=== PATIENT | female | born 1940 | race Caucasian/White ===

== ENCOUNTER 2021-10-01 18:44 | Inpatient (IN) | payer MEDICARE, OTHER ==
[2021-10-01] MEDS ORDERED: Ondansetron PF 4 MG/2 ML Vial ONE ×2 (19:24→20:34)
[2021-10-01 19:53] LABS: #Eosinphils 0.1 10x3/uL (0.0-0.5); #Monocytes 0.6 10x3/uL (0.0-1.1); #Neutrophils 7.3 10x3/uL (1.5-8.4); %Basophils 0.3 % (0.0-2.0); %Eosinophils 0.7 % (0.0-6.0); %Lymphocytes 16.2 % (18.0-47.0); %Neutrophils 76.5 % (40.0-75.0); Hemoglobin 12.4 g/dL (12.0-15.5); Mean Corpuscular Hemoglobin 31.2 pg (27.0-33.0); Mean Corpuscular Volume 94.7 fl (81.6-98.3); Mean Platelet Volume 9.1 fl (7.4-10.4); Platelet Count 268 10x3/uL (150-450); RBC Distribution Width 11.7 % (11.5-14.5); Red Blood Cell (RBC) Count 3.97 10x6/uL (3.90-5.03); White Blood Cell (WBC) Count 9.5 10x3/uL (3.5-10.5)
[2021-10-01 20:01] LABS: ALT (SGPT) 17 U/L (8-55); AST (SGOT) 26 U/L (5-34); Albumin 4.2 g/dL (3.4-4.8); Alkaline Phosphatase 72 U/L (40-110); Anion Gap 18 mmol/L (10-20); BUN (Urea Nitrogen) 20 mg/dL (9.8-20.1); Bilirubin, Total 0.5 mg/dL (0.2-1.2); Calc. Creatinine Clearance 0 mL/min (70-130); Calcium 9.3 mg/dL (7.8-10.44); Carbon Dioxide 20 mmol/L (23-31); Chloride 97 mmol/L (98-107); Globulin 3.3 g/dL (2.4-3.5); Glucose 135 mg/dL (83-110); Lipase 38 U/L (8-78); Protein, Total 7.5 g/dL (5.8-8.1); Sodium 131 mmol/L (136-145)
[2021-10-01] MEDS ORDERED: HYDROmorphone 0.5 MG/0.5 ML SYRINGE ONE ×2 (20:36→21:46)
[2021-10-01 21:50] LABS: Bilirubin Neg (Negative); Blood, Urine Negative (Negative); Clarity Slightly Cloudy (Clear); Glucose, Urine (Dipstick) Normal (Negative); Ketone, Urine 150 mg/dL (Negative); Leukocyte Negative (Negative); Nitrite Negative (Negative); Protein, Urine (Dipstick) 15 mg/dl (Neg-Trace); Specific Gravity, Urine 1.015 (1.002-1.036); Urobilinogen Normal mg/dL (Less than 2)
[2021-10-01 23:36] LABS: SARS-CoV-2 NAA Rapid Test Not Detected (NotDetected)
[2021-10-01] MEDS ORDERED: Ondansetron PF 4 MG/2 ML Vial IVP PRN (23:43)
[2021-10-02] MEDS: Sodium Chloride 0.9% 1,000 ML IV SCH ×3 (00:34→17:37)
[2021-10-02] MEDS ORDERED: HYDROmorphone 0.5 MG/0.5 ML SYRINGE ONE (02:36)
[2021-10-02] MEDS ORDERED: Ondansetron PF 4 MG/2 ML Vial ONE ×2 (02:37→07:41)
[2021-10-02] MEDS ORDERED: cefOXitin Sodium/Dextrose 2 GM/50 ML BAG ONE (03:09)
[2021-10-02] MEDS ORDERED: EPINEPHrine 1 MG/ML AMP ONE (03:35)
[2021-10-02] MEDS ORDERED: Bupivacaine 0.25% HCL 30 ML VIAL ONE (03:35)
[2021-10-02 04:25] LABS: Magnesium 1.9 mg/dL (1.6-2.6)
[2021-10-02] MEDS ORDERED: Rocuronium Bromide 10 MG/ML (10ML VIAL) ONE ×2 (04:59→06:19)
[2021-10-02] MEDS ORDERED: Lidocaine 1% PF 5 ML VIAL ONE (04:59)
[2021-10-02] MEDS ORDERED: Fentanyl 100 MCG/2 ML VIAL ONE ×2 (05:01→07:37)
[2021-10-02] MEDS ORDERED: Succinylcholine 200 MG/10 ml SYRINGE FS ONE (06:19)
[2021-10-02] MEDS ORDERED: Dexamethasone 4 mg/ml Vial ONE (07:41)
[2021-10-02] MEDS ORDERED: Glycopyrrolate 0.2 MG/ML 5 ML SYRINGE ONE (07:41)
[2021-10-02] MEDS ORDERED: Zolpidem Tartrate 5 MG TAB PO PRN (08:45)
[2021-10-02] MEDS ORDERED: diphenhydrAMINE 50 MG/ML VIAL IM/IV PRN (08:45)
[2021-10-02] MEDS ORDERED: Promethazine HCl 25 MG/ML VIAL IM PRN (08:45)
[2021-10-02] MEDS ORDERED: fentaNYL Citrate/PF PCA SYRING 50 ML IV SCH (08:45)
[2021-10-02] MEDS ORDERED: diphenhydrAMINE 25 MG CAP PO PRN (08:45)
[2021-10-02] MEDS ORDERED: Naloxone HCl 0.4 mg/ml Vial IV PRN (08:45)
[2021-10-02] MEDS ORDERED: FLU VACC QS2021-22(65YR UP)/PF 240 MCG/0.7 ML SYRINGE IM ONE (11:15)
[2021-10-02 11:25] LABS: #Monocytes 1.3 10x3/uL (0.0-1.1); #Neutrophils 7.8 10x3/uL (1.5-8.4); %Basophils 0.1 % (0.0-2.0); %Lymphocytes 11.6 % (18.0-47.0); %Monocytes 12.4 % (0.0-10.0); %Neutrophils 75.3 % (40.0-75.0); Mean Corpuscular HGB CONC 33.4 g/dL (32.0-36.0); Mean Corpuscular Volume 95.7 fl (81.6-98.3); Mean Platelet Volume 8.8 fl (7.4-10.4); Platelet Count 282 10x3/uL (150-450); Red Blood Cell (RBC) Count 3.75 10x6/uL (3.90-5.03); White Blood Cell (WBC) Count 10.4 10x3/uL (3.5-10.5)
[2021-10-02 11:39] LABS: Lactic Acid 1.8 mmol/L (0.5-2.2)
[2021-10-02] MEDS: cefOXitin Sodium 1 GM in Sodium Chloride 0.9% 100 ML IVPB SCH ×3 (11:40→21:10)
[2021-10-02] MEDS: Pantoprazole 40 MG VIAL IVP SCH ×2 (11:41→21:10)
[2021-10-02 11:43] LABS: ALT (SGPT) 13 U/L (8-55); AST (SGOT) 23 U/L (5-34); Albumin 3.3 g/dL (3.4-4.8); Alkaline Phosphatase 55 U/L (40-110); Anion Gap 14 mmol/L (10-20); BUN (Urea Nitrogen) 11 mg/dL (9.8-20.1); Bilirubin, Total 0.5 mg/dL (0.2-1.2); Calc. Creatinine Clearance 64 mL/min (70-130); Calcium 8.3 mg/dL (7.8-10.44); Carbon Dioxide 21 mmol/L (23-31); Chloride 103 mmol/L (98-107); Glucose 134 mg/dL (83-110); Potassium 3.8 mmol/L (3.5-5.1); Protein, Total 6.3 g/dL (5.8-8.1); Sodium 134 mmol/L (136-145)
[2021-10-02] MEDS ORDERED: Non-Formulary Medication 1 EACH (Brimonidine Tartrate/Timolol [Combigan 0.2%-0.5% Eye Drop OP SCH (21:00)
[2021-10-02] MEDS: Timolol 0.5% Ophth Soln 5 ml Bottle EA EYE SCH (22:30)
[2021-10-02] MEDS: Brimonidine Tartrate 0.2% Ophth Soln 5 ml Bottle EA EYE SCH (22:30)
[2021-10-03] MEDS: Sodium Chloride 0.9% 1,000 ML IV SCH ×4 (00:40→22:00)
[2021-10-03 04:21] LABS: Hemoglobin 11.7 g/dL (12.0-15.5); Mean Corpuscular HGB CONC 33.8 g/dL (32.0-36.0); Mean Corpuscular Volume 94.5 fl (81.6-98.3); Mean Platelet Volume 8.9 fl (7.4-10.4); Platelet Count 288 10x3/uL (150-450); RBC Distribution Width 12.2 % (11.5-14.5); Red Blood Cell (RBC) Count 3.66 10x6/uL (3.90-5.03); White Blood Cell (WBC) Count 10.6 10x3/uL (3.5-10.5)
[2021-10-03 04:38] LABS: Anion Gap 10 mmol/L (10-20); BUN (Urea Nitrogen) 11 mg/dL (9.8-20.1); Calc. Creatinine Clearance 64 mL/min (70-130); Calcium 8.2 mg/dL (7.8-10.44); Carbon Dioxide 23 mmol/L (23-31); Chloride 105 mmol/L (98-107); Glucose 112 mg/dL (83-110); Potassium 3.9 mmol/L (3.5-5.1); Sodium 134 mmol/L (136-145)
[2021-10-03 04:39] LABS: MDiff Complete? YES; Manual Diff?? YES
[2021-10-03 05:45] LABS: Band 3 % (5-11); Lymphocytes 5 % (21-51); Monocytes 14 % (0-10); Neutrophil 70 % (42-75); Reactive Lymphocytes 8 % (0-10)
[2021-10-03 05:46] LABS: Platelet Morphology Comment Appears Adequate
[2021-10-03] MEDS: cefOXitin Sodium 1 GM in Sodium Chloride 0.9% 100 ML IVPB SCH ×2 (06:45→09:33)
[2021-10-03] MEDS: Pantoprazole 40 MG VIAL IVP SCH ×2 (09:33→20:39)
[2021-10-03] MEDS: Ondansetron PF 4 MG/2 ML Vial IVP PRN ×2 (09:33→18:00)
[2021-10-03] MEDS: Levothyroxine Sodium 50 MCG TAB PO SCH (09:36)
[2021-10-03] MEDS: Fluticasone Propionate Nasal Spray 16 gm Bottle NASAL SCH (09:37)
[2021-10-03] MEDS: Timolol 0.5% Ophth Soln 5 ml Bottle EA EYE SCH ×2 (09:38→20:39)
[2021-10-03] MEDS: Brimonidine Tartrate 0.2% Ophth Soln 5 ml Bottle EA EYE SCH ×2 (09:46→20:40)
[2021-10-03] MEDS: Apixaban 2.5 MG TAB PO SCH (20:37)
[2021-10-03] MEDS: Promethazine HCl 12.5 MG in Sodium Chloride 0.9% 50 ML IVPB PRN (20:39)
[2021-10-03] MEDS ORDERED: Montelukast Sodium 10 mg Tablet PO SCH (21:30)
[2021-10-04 02:48] LABS: Anion Gap 12 mmol/L (10-20); BUN (Urea Nitrogen) 8 mg/dL (9.8-20.1); Calc. Creatinine Clearance 72 mL/min (70-130); Calcium 7.9 mg/dL (7.8-10.44); Carbon Dioxide 21 mmol/L (23-31); Chloride 103 mmol/L (98-107); Glucose 94 mg/dL (83-110); Magnesium 1.8 mg/dL (1.6-2.6); Potassium 3.3 mmol/L (3.5-5.1); Sodium 133 mmol/L (136-145)
[2021-10-04 02:52] LABS: #Eosinphils 0.1 10x3/uL (0.0-0.5); #Monocytes 1.2 10x3/uL (0.0-1.1); #Neutrophils 6.4 10x3/uL (1.5-8.4); %Basophils 0.2 % (0.0-2.0); %Eosinophils 0.9 % (0.0-6.0); %Lymphocytes 19.6 % (18.0-47.0); %Monocytes 12.3 % (0.0-10.0); %Neutrophils 66.6 % (40.0-75.0); Hemoglobin 11.4 g/dL (12.0-15.5); Mean Corpuscular HGB CONC 33.5 g/dL (32.0-36.0); Mean Corpuscular Hemoglobin 31.8 pg (27.0-33.0); Mean Platelet Volume 8.9 fl (7.4-10.4); Platelet Count 252 10x3/uL (150-450); RBC Distribution Width 12.2 % (11.5-14.5); Red Blood Cell (RBC) Count 3.58 10x6/uL (3.90-5.03); White Blood Cell (WBC) Count 9.7 10x3/uL (3.5-10.5)
[2021-10-04] MEDS: Ondansetron PF 4 MG/2 ML Vial IVP PRN ×2 (02:57→18:58)
[2021-10-04] MEDS ORDERED: Diltiazem 125 MG in Sodium Chloride 0.9% 100 ML IVPB SCH ×2 (04:00→09:00)
[2021-10-04] MEDS: Promethazine HCl 12.5 MG in Sodium Chloride 0.9% 50 ML IVPB PRN (04:17)
[2021-10-04] MEDS: Artificial Tear Sol 15 ML BOT EA EYE SCH ×3 (04:26→22:08)
[2021-10-04] MEDS ORDERED: ESTRADIOL 0.5 MG PO SCH (09:00)
[2021-10-04] MEDS ORDERED: Montelukast Sodium 10 mg Tablet PO SCH (09:00)
[2021-10-04] MEDS: Levothyroxine Sodium 50 MCG TAB PO SCH (09:21)
[2021-10-04] MEDS: Apixaban 2.5 MG TAB PO SCH ×2 (09:21→22:07)
[2021-10-04] MEDS: D5 1/2 NS w/20 mEq KCL 1,000 ML IV SCH (09:21)
[2021-10-04] MEDS: Potassium Chloride 20 MEQ in Premix Bag 1 BAG IVPB SCH ×2 (09:21→12:30)
[2021-10-04] MEDS: Pantoprazole 40 MG VIAL IVP SCH ×2 (09:22→22:20)
[2021-10-04] MEDS: Timolol 0.5% Ophth Soln 5 ml Bottle EA EYE SCH ×2 (09:22→22:10)
[2021-10-04] MEDS: Brimonidine Tartrate 0.2% Ophth Soln 5 ml Bottle EA EYE SCH ×2 (09:23→22:08)
[2021-10-04] MEDS: Fluticasone Propionate Nasal Spray 16 gm Bottle NASAL SCH (09:23)
[2021-10-04 09:42] LABS: Phosphorus 3.3 mg/dL (2.3-4.7)
[2021-10-04] MEDS ORDERED: Magnesium Sulfate/D5W 1 GM/100 ML BAG IVPB SCH (10:00)
[2021-10-04] MEDS ORDERED: Potassium Chloride 20 MEQ TAB PO SCH (10:00)
[2021-10-04] MEDS: Montelukast Sodium 10 mg Tablet PO SCH (22:07)
[2021-10-05] MEDS: D5 1/2 NS w/20 mEq KCL 1,000 ML IV SCH ×3 (00:50→09:28)
[2021-10-05] MEDS: Ondansetron PF 4 MG/2 ML Vial IVP PRN (07:33)
[2021-10-05] MEDS ORDERED: Potassium Chloride 10 MEQ in Premix Bag 1 BAG IVPB SCH (08:30)
[2021-10-05] MEDS: Pantoprazole 40 MG VIAL IVP SCH ×2 (09:29→21:11)
[2021-10-05] MEDS: Brimonidine Tartrate 0.2% Ophth Soln 5 ml Bottle EA EYE SCH ×2 (09:29→21:29)
[2021-10-05] MEDS: Timolol 0.5% Ophth Soln 5 ml Bottle EA EYE SCH ×2 (09:29→21:14)
[2021-10-05] MEDS: Fluticasone Propionate Nasal Spray 16 gm Bottle NASAL SCH (09:29)
[2021-10-05] MEDS: Levothyroxine Sodium 50 MCG TAB PO SCH (09:30)
[2021-10-05] MEDS: Apixaban 2.5 MG TAB PO SCH ×2 (09:30→21:13)
[2021-10-05] MEDS: Artificial Tear Sol 15 ML BOT EA EYE SCH ×2 (09:30→21:13)
[2021-10-05 10:33] LABS: Anion Gap 10 mmol/L (10-20); BUN (Urea Nitrogen) 9 mg/dL (9.8-20.1); Calc. Creatinine Clearance 70 mL/min (70-130); Carbon Dioxide 22 mmol/L (23-31); Chloride 101 mmol/L (98-107); Glucose 157 mg/dL (83-110); Magnesium 1.9 mg/dL (1.6-2.6); Potassium 4.3 mmol/L (3.5-5.1); Sodium 129 mmol/L (136-145)
[2021-10-05] MEDS ORDERED: Digoxin 0.5 MG/2 ML AMP SLOW IVP SCH (11:00)
[2021-10-05 11:46] VITALS: BMI 23.8
[2021-10-05] MEDS: Lactated Ringer's 1,000 ML IV SCH ×2 (12:52→21:31)
[2021-10-05] MEDS: Montelukast Sodium 10 mg Tablet PO SCH (21:13)
[2021-10-06 04:46] LABS: #Eosinphils 0.3 10x3/uL (0.0-0.5); #Neutrophils 5.5 10x3/uL (1.5-8.4); %Basophils 0.3 % (0.0-2.0); %Eosinophils 2.9 % (0.0-6.0); %Lymphocytes 26.5 % (18.0-47.0); %Monocytes 11.1 % (0.0-10.0); %Neutrophils 58.9 % (40.0-75.0); Mean Corpuscular Hemoglobin 31.7 pg (27.0-33.0); Mean Corpuscular Volume 93.4 fl (81.6-98.3); Mean Platelet Volume 9.1 fl (7.4-10.4); Platelet Count 318 10x3/uL (150-450); RBC Distribution Width 11.9 % (11.5-14.5); Red Blood Cell (RBC) Count 3.47 10x6/uL (3.90-5.03); White Blood Cell (WBC) Count 9.4 10x3/uL (3.5-10.5)
[2021-10-06 04:57] LABS: Anion Gap 10 mmol/L (10-20); BUN (Urea Nitrogen) 11 mg/dL (9.8-20.1); Calc. Creatinine Clearance 71 mL/min (70-130); Calcium 7.7 mg/dL (7.8-10.44); Carbon Dioxide 22 mmol/L (23-31); Chloride 104 mmol/L (98-107); Glucose 93 mg/dL (83-110); Magnesium 1.7 mg/dL (1.6-2.6); Potassium 3.7 mmol/L (3.5-5.1); Sodium 132 mmol/L (136-145)
[2021-10-06] MEDS: Lactated Ringer's 1,000 ML IV SCH ×2 (06:48→16:49)
[2021-10-06] MEDS ORDERED: Potassium Chloride 10 MEQ in Premix Bag 1 BAG IVPB SCH (09:00)
[2021-10-06] MEDS ORDERED: Magnesium 2 GM/50 ML 2 GM in Premix Bag 1 BAG IVPB SCH (09:00)
[2021-10-06] MEDS ORDERED: Levothyroxine Sodium 50 MCG TAB PO SCH (09:45)
[2021-10-06] MEDS: Apixaban 2.5 MG TAB PO SCH ×2 (10:02→20:42)
[2021-10-06] MEDS: Fluticasone Propionate Nasal Spray 16 gm Bottle NASAL SCH (10:03)
[2021-10-06] MEDS: Artificial Tear Sol 15 ML BOT EA EYE SCH ×2 (10:03→20:43)
[2021-10-06] MEDS: Brimonidine Tartrate 0.2% Ophth Soln 5 ml Bottle EA EYE SCH ×2 (10:03→20:45)
[2021-10-06] MEDS: Pantoprazole 40 MG VIAL IVP SCH ×2 (10:04→20:43)
[2021-10-06] MEDS: Timolol 0.5% Ophth Soln 5 ml Bottle EA EYE SCH ×2 (10:58→20:44)
[2021-10-06] MEDS: Levothyroxine Sodium 50 MCG TAB PO SCH (11:00)
[2021-10-06] MEDS ORDERED: Digoxin 0.5 MG/2 ML AMP SLOW IVP SCH (12:00)
[2021-10-06] MEDS: Montelukast Sodium 10 mg Tablet PO SCH (20:43)
[2021-10-07] MEDS: Lactated Ringer's 1,000 ML IV SCH ×3 (04:03→20:23)
[2021-10-07 04:17] LABS: #Basophils 0.1 10x3/uL (0.0-0.2); #Eosinphils 0.4 10x3/uL (0.0-0.5); #Neutrophils 4.5 10x3/uL (1.5-8.4); %Basophils 0.6 % (0.0-2.0); %Eosinophils 5.3 % (0.0-6.0); %Lymphocytes 27.8 % (18.0-47.0); %Monocytes 11.4 % (0.0-10.0); %Neutrophils 54.5 % (40.0-75.0); Hemoglobin 10.4 g/dL (12.0-15.5); Mean Corpuscular HGB CONC 33.8 g/dL (32.0-36.0); Mean Corpuscular Volume 94.8 fl (81.6-98.3); Mean Platelet Volume 8.9 fl (7.4-10.4); Platelet Count 296 10x3/uL (150-450); Red Blood Cell (RBC) Count 3.25 10x6/uL (3.90-5.03); White Blood Cell (WBC) Count 8.3 10x3/uL (3.5-10.5)
[2021-10-07 04:35] LABS: Anion Gap 11 mmol/L (10-20); BUN (Urea Nitrogen) 9 mg/dL (9.8-20.1); Calc. Creatinine Clearance 64 mL/min (70-130); Calcium 7.7 mg/dL (7.8-10.44); Carbon Dioxide 25 mmol/L (23-31); Chloride 102 mmol/L (98-107); Glucose 85 mg/dL (83-110); Potassium 3.8 mmol/L (3.5-5.1); Sodium 134 mmol/L (136-145)
[2021-10-07] MEDS: Levothyroxine Sodium 50 MCG TAB PO SCH (06:08)
[2021-10-07] MEDS: Pantoprazole 40 MG VIAL IVP SCH ×2 (08:36→20:21)
[2021-10-07] MEDS: Artificial Tear Sol 15 ML BOT EA EYE SCH ×2 (08:37→20:20)
[2021-10-07] MEDS: Apixaban 2.5 MG TAB PO SCH ×2 (08:37→20:20)
[2021-10-07] MEDS: Fluticasone Propionate Nasal Spray 16 gm Bottle NASAL SCH (08:38)
[2021-10-07] MEDS: Timolol 0.5% Ophth Soln 5 ml Bottle EA EYE SCH ×2 (08:38→20:25)
[2021-10-07] MEDS ORDERED: Magnesium 2 GM/50 ML 2 GM in Premix Bag 1 BAG IVPB SCH (10:15)
[2021-10-07] MEDS ORDERED: Digoxin 0.25 MG TAB PO SCH (10:15)
[2021-10-07] MEDS ORDERED: Potassium Chloride 20 MEQ TAB PO SCH ×2 (10:15→15:00)
[2021-10-07 10:48] LABS: Magnesium 1.7 mg/dL (1.6-2.6)
[2021-10-07 11:10] LABS: Free T4 (Free Thyroxine) 1.04 ng/dL (0.70-1.48); Thyroid Stimulating Hormone 5.3378 uIU/mL (0.35-4.94)
[2021-10-07 14:45] LABS: Anion Gap 11 mmol/L (10-20); BUN (Urea Nitrogen) 8 mg/dL (9.8-20.1); Calc. Creatinine Clearance 65 mL/min (70-130); Calcium 7.8 mg/dL (7.8-10.44); Carbon Dioxide 25 mmol/L (23-31); Chloride 101 mmol/L (98-107); Glucose 109 mg/dL (83-110); Sodium 133 mmol/L (136-145)
[2021-10-07] MEDS ORDERED: HYDROcodone/Acetaminophen 5/325 mg Tablet PO PRN ×2 (18:56)
[2021-10-07 19:00] LABS: Potassium 4.4 mmol/L (3.5-5.1)
[2021-10-07] MEDS ORDERED: Potassium Chloride 20 MEQ TAB PO PRN (19:00)
[2021-10-07] MEDS: Montelukast Sodium 10 mg Tablet PO SCH (20:19)
[2021-10-07] MEDS: Dofetilide 0.125 MG CAP PO SCH (20:19)
[2021-10-07] MEDS: Brimonidine Tartrate 0.2% Ophth Soln 5 ml Bottle EA EYE SCH (20:20)
[2021-10-08] MEDS: Lactated Ringer's 1,000 ML IV SCH ×2 (04:33→22:18)
[2021-10-08 05:59] LABS: Anion Gap 11 mmol/L (10-20); BUN (Urea Nitrogen) 6 mg/dL (9.8-20.1); Calc. Creatinine Clearance 60 mL/min (70-130); Calcium 7.9 mg/dL (7.8-10.44); Carbon Dioxide 24 mmol/L (23-31); Chloride 103 mmol/L (98-107); Glucose 98 mg/dL (83-110); Potassium 4.1 mmol/L (3.5-5.1); Sodium 134 mmol/L (136-145)
[2021-10-08 06:08] LABS: SARS-CoV-2 NAA Rapid Test Not Detected (NotDetected)
[2021-10-08] MEDS: Levothyroxine Sodium 50 MCG TAB PO SCH (06:19)
[2021-10-08 07:09] LABS: #Eosinphils 0.5 10x3/uL (0.0-0.5); #Monocytes 0.8 10x3/uL (0.0-1.1); #Neutrophils 3.5 10x3/uL (1.5-8.4); %Basophils 0.6 % (0.0-2.0); %Eosinophils 7.3 % (0.0-6.0); %Lymphocytes 25.8 % (18.0-47.0); %Monocytes 11.6 % (0.0-10.0); %Neutrophils 53.8 % (40.0-75.0); Hemoglobin 9.6 g/dL (12.0-15.5); Mean Corpuscular HGB CONC 33.4 g/dL (32.0-36.0); Mean Corpuscular Volume 95.7 fl (81.6-98.3); Mean Platelet Volume 9.4 fl (7.4-10.4); Platelet Count 310 10x3/uL (150-450); RBC Distribution Width 12.1 % (11.5-14.5); White Blood Cell (WBC) Count 6.4 10x3/uL (3.5-10.5)
[2021-10-08] MEDS ORDERED: Digoxin 0.25 MG TAB PO SCH (09:00)
[2021-10-08] MEDS: Dofetilide 0.125 MG CAP PO SCH ×2 (11:19→21:23)
[2021-10-08] MEDS: Apixaban 2.5 MG TAB PO SCH ×2 (11:20→21:23)
[2021-10-08] MEDS: Pantoprazole 40 MG VIAL IVP SCH ×2 (11:20→21:33)
[2021-10-08] MEDS: Fluticasone Propionate Nasal Spray 16 gm Bottle NASAL SCH (11:21)
[2021-10-08] MEDS: Artificial Tear Sol 15 ML BOT EA EYE SCH ×2 (11:21→21:22)
[2021-10-08] MEDS: Brimonidine Tartrate 0.2% Ophth Soln 5 ml Bottle EA EYE SCH ×2 (11:21→21:23)
[2021-10-08] MEDS: Timolol 0.5% Ophth Soln 5 ml Bottle EA EYE SCH ×2 (11:22→21:22)
[2021-10-08] MEDS ORDERED: Electrolyte Replacement Protocol 1 EACH FS PRN (14:27)
[2021-10-08] MEDS ORDERED: Magnesium 2 GM/50 ML 2 GM in Premix Bag 1 BAG IVPB SCH (14:30)
[2021-10-08] MEDS: Montelukast Sodium 10 mg Tablet PO SCH (21:23)
[2021-10-09 04:19] LABS: #Eosinphils 0.4 10x3/uL (0.0-0.5); #Monocytes 0.8 10x3/uL (0.0-1.1); #Neutrophils 3.7 10x3/uL (1.5-8.4); %Basophils 0.5 % (0.0-2.0); %Eosinophils 5.7 % (0.0-6.0); %Lymphocytes 25.5 % (18.0-47.0); %Monocytes 11.5 % (0.0-10.0); %Neutrophils 56.2 % (40.0-75.0); Hemoglobin 9.3 g/dL (12.0-15.5); Mean Corpuscular Hemoglobin 31.7 pg (27.0-33.0); Mean Corpuscular Volume 96.2 fl (81.6-98.3); Platelet Count 285 10x3/uL (150-450); RBC Distribution Width 12.2 % (11.5-14.5); Red Blood Cell (RBC) Count 2.93 10x6/uL (3.90-5.03); White Blood Cell (WBC) Count 6.6 10x3/uL (3.5-10.5)
[2021-10-09 04:30] LABS: Anion Gap 13 mmol/L (10-20); BUN (Urea Nitrogen) 7 mg/dL (9.8-20.1); Calc. Creatinine Clearance 61 mL/min (70-130); Carbon Dioxide 25 mmol/L (23-31); Chloride 102 mmol/L (98-107); Glucose 96 mg/dL (83-110); Sodium 136 mmol/L (136-145)
[2021-10-09] MEDS ORDERED: Magnesium 2 GM/50 ML 2 GM in Premix Bag 1 BAG IVPB SCH ×2 (05:15→11:00)
[2021-10-09] MEDS: Levothyroxine Sodium 50 MCG TAB PO SCH (07:15)
[2021-10-09] MEDS: Apixaban 2.5 MG TAB PO SCH ×2 (10:09→21:21)
[2021-10-09] MEDS: Artificial Tear Sol 15 ML BOT EA EYE SCH ×2 (10:09→21:23)
[2021-10-09] MEDS: Brimonidine Tartrate 0.2% Ophth Soln 5 ml Bottle EA EYE SCH ×2 (10:10→21:22)
[2021-10-09] MEDS: Dofetilide 0.125 MG CAP PO SCH ×2 (10:10→21:30)
[2021-10-09] MEDS: Fluticasone Propionate Nasal Spray 16 gm Bottle NASAL SCH (10:10)
[2021-10-09] MEDS: Pantoprazole 40 MG VIAL IVP SCH ×2 (10:11→21:22)
[2021-10-09] MEDS: Timolol 0.5% Ophth Soln 5 ml Bottle EA EYE SCH ×2 (10:11→21:22)
[2021-10-09] MEDS: Lactated Ringer's 1,000 ML IV SCH (17:14)
[2021-10-09] MEDS: Montelukast Sodium 10 mg Tablet PO SCH (21:25)
[2021-10-10 05:43] LABS: Anion Gap 12 mmol/L (10-20); BUN (Urea Nitrogen) 8 mg/dL (9.8-20.1); Calc. Creatinine Clearance 65 mL/min (70-130); Carbon Dioxide 24 mmol/L (23-31); Chloride 104 mmol/L (98-107); Glucose 99 mg/dL (83-110); Potassium 3.9 mmol/L (3.5-5.1); Sodium 136 mmol/L (136-145)
[2021-10-10 05:50] LABS: #Basophils 0.1 10x3/uL (0.0-0.2); #Eosinphils 0.4 10x3/uL (0.0-0.5); #Monocytes 0.9 10x3/uL (0.0-1.1); #Neutrophils 3.8 10x3/uL (1.5-8.4); %Basophils 0.7 % (0.0-2.0); %Eosinophils 5.2 % (0.0-6.0); %Lymphocytes 26.9 % (18.0-47.0); %Monocytes 12.8 % (0.0-10.0); %Neutrophils 53.6 % (40.0-75.0); Mean Corpuscular HGB CONC 33.3 g/dL (32.0-36.0); Mean Corpuscular Volume 96.1 fl (81.6-98.3); Mean Platelet Volume 9.5 fl (7.4-10.4); Platelet Count 337 10x3/uL (150-450); RBC Distribution Width 12.3 % (11.5-14.5); Red Blood Cell (RBC) Count 2.81 10x6/uL (3.90-5.03); White Blood Cell (WBC) Count 7.2 10x3/uL (3.5-10.5)
[2021-10-10] MEDS: Levothyroxine Sodium 50 MCG TAB PO SCH (06:00)
[2021-10-10] MEDS ORDERED: Magnesium 2 GM/50 ML 2 GM in Premix Bag 1 BAG IVPB SCH (08:00)
[2021-10-10] MEDS ORDERED: Potassium Chloride 20 MEQ TAB PO SCH (08:00)
[2021-10-10] MEDS: Apixaban 2.5 MG TAB PO SCH ×2 (08:39→20:54)
[2021-10-10] MEDS: Pantoprazole 40 MG VIAL IVP SCH ×2 (08:40→20:55)
[2021-10-10] MEDS: Dofetilide 0.125 MG CAP PO SCH ×2 (08:40→20:54)
[2021-10-10] MEDS: Fluticasone Propionate Nasal Spray 16 gm Bottle NASAL SCH (08:41)
[2021-10-10] MEDS: Timolol 0.5% Ophth Soln 5 ml Bottle EA EYE SCH ×2 (08:42→20:56)
[2021-10-10] MEDS: Artificial Tear Sol 15 ML BOT EA EYE SCH ×2 (08:43→20:57)
[2021-10-10] MEDS: Brimonidine Tartrate 0.2% Ophth Soln 5 ml Bottle EA EYE SCH ×2 (08:44→21:12)
[2021-10-10 14:49] LABS: Potassium 4.5 mmol/L (3.5-5.1)
[2021-10-10] MEDS: Montelukast Sodium 10 mg Tablet PO SCH (20:54)
[2021-10-11 04:39] LABS: Anion Gap 11 mmol/L (10-20); BUN (Urea Nitrogen) 7 mg/dL (9.8-20.1); Calc. Creatinine Clearance 61 mL/min (70-130); Calcium 8.7 mg/dL (7.8-10.44); Carbon Dioxide 28 mmol/L (23-31); Chloride 100 mmol/L (98-107); Glucose 98 mg/dL (83-110); Magnesium 1.9 mg/dL (1.6-2.6); Sodium 135 mmol/L (136-145)
[2021-10-11 04:46] LABS: #Eosinphils 0.4 10x3/uL (0.0-0.5); #Neutrophils 4.1 10x3/uL (1.5-8.4); %Basophils 0.6 % (0.0-2.0); %Eosinophils 5.4 % (0.0-6.0); %Lymphocytes 24.3 % (18.0-47.0); %Monocytes 13.2 % (0.0-10.0); %Neutrophils 55.9 % (40.0-75.0); Hemoglobin 10.7 g/dL (12.0-15.5); Mean Corpuscular Hemoglobin 31.7 pg (27.0-33.0); Mean Corpuscular Volume 95.9 fl (81.6-98.3); Mean Platelet Volume 9.4 fl (7.4-10.4); Platelet Count 422 10x3/uL (150-450); RBC Distribution Width 12.3 % (11.5-14.5); Red Blood Cell (RBC) Count 3.38 10x6/uL (3.90-5.03); White Blood Cell (WBC) Count 7.3 10x3/uL (3.5-10.5)
[2021-10-11] MEDS: Levothyroxine Sodium 50 MCG TAB PO SCH (05:56)
[2021-10-11] MEDS: Magnesium 2 GM/50 ML 2 GM in Premix Bag 1 BAG IVPB SCH ×2 (05:58→06:22)
[2021-10-11] MEDS ORDERED: Magnesium 2 GM/50 ML 2 GM in Premix Bag 1 BAG IVPB SCH (06:30)
[2021-10-11] MEDS: Timolol 0.5% Ophth Soln 5 ml Bottle EA EYE SCH (09:27)
[2021-10-11] MEDS: Dofetilide 0.125 MG CAP PO SCH (09:28)
[2021-10-11] MEDS: Apixaban 2.5 MG TAB PO SCH (09:29)
[2021-10-11] MEDS: Fluticasone Propionate Nasal Spray 16 gm Bottle NASAL SCH (09:29)
[2021-10-11] MEDS: Pantoprazole 40 MG VIAL IVP SCH (09:29)
[2021-10-11] MEDS: Brimonidine Tartrate 0.2% Ophth Soln 5 ml Bottle EA EYE SCH (09:30)
[2021-10-11] MEDS: Artificial Tear Sol 15 ML BOT EA EYE SCH (09:30)
[2021-10-11 11:59] VITALS: BP 92/50; TEMP 97.4
== END 2021-10-11 13:48 | disposition home or self-care (01) | DRG 330 ==
LOC: CSHERS 18:44 → CSHERHOLD 10-02 00:04 → CSHTELE 10-02 10:12
PROVIDERS: ADMIT Family Medicine; ATTEND Family Medicine
PROC: 0DNU0ZZ Release Omentum, Open Approach (ICD-10-PCS; principal; 2021-10-02)
PROC: 0DB80ZZ Excision of Small Intestine, Open Approach (ICD-10-PCS; 2021-10-02)
PROC: 0DNW0ZZ Release Peritoneum, Open Approach (ICD-10-PCS; 2021-10-02)
PROC: 0DNH0ZZ Release Cecum, Open Approach (ICD-10-PCS; 2021-10-02)
DX: K56.50 Intestinal adhesions [bands], unspecified as to partial versus complete obstruction (principal); I50.42 Chronic combined systolic (congestive) and diastolic (congestive) heart failure; E87.1 Hypo-osmolality and hyponatremia; I25.10 Atherosclerotic heart disease of native coronary artery without angina pectoris; I48.0 Paroxysmal atrial fibrillation; E03.9 Hypothyroidism, unspecified; I08.0 Rheumatic disorders of both mitral and aortic valves; D64.9 Anemia, unspecified; Z96.652 Presence of left artificial knee joint; Z20.822 Contact with and (suspected) exposure to COVID-19; Z90.49 Acquired absence of other specified parts of digestive tract; Z98.51 Tubal ligation status; Z90.710 Acquired absence of both cervix and uterus; Z88.8 Allergy status to other drugs, medicaments and biological substances; I25.2 Old myocardial infarction
CPT/HCPCS: 36415; 74018; 74177; 80048; 80053; 81003; 83605; 83690; 83735; 84100; 84439; 84443; 84484; 85025; 86850; 86900; 86901; 88307; 93005; 93010; 96374; 96375; 96376; C1776; C9113; J0171; J0694; J1100; J1160; J1170; J2405; J2550; J3010; J3475; J3480; J3490; J7050; J7120; J8499; S0020; U0002

== ENCOUNTER 2024-07-19 10:20 | Outpatient (CLI) | payer MEDICARE | END 2024-07-19 10:21 | disposition home or self-care (01) | LOC: CSHRAD 10:20 | PROVIDERS: ATTEND Internal Medicine | DX: M79.672 Pain in left foot (principal) ==

== ENCOUNTER 2024-10-17 10:46 | Outpatient (CLI) | payer MEDICARE | END 2024-10-17 10:47 | disposition home or self-care (01) | LOC: CSHMAMMO 10:46 | PROVIDERS: ATTEND Obstetrics & Gynecology | DX: Z12.31 Encounter for screening mammogram for malignant neoplasm of breast (principal); Z98.82 Breast implant status | CPT/HCPCS: 77063; 77067 ==